=== PATIENT | male | born 1955 | race Caucasian/White ===

== ENCOUNTER → 2016-08-04 | Outpatient (CLI) | payer OTHER | LOC: CAT 12:25 | DX: K76.0 Fatty (change of) liver, not elsewhere classified (principal); R22.1 Localized swelling, mass and lump, neck ==

== ENCOUNTER → 2016-10-24 | Outpatient (CLI) | payer OTHER | LOC: CAT 09:41 | DX: K57.32 Diverticulitis of large intestine without perforation or abscess without bleeding (principal); K76.0 Fatty (change of) liver, not elsewhere classified ==

== ENCOUNTER → 2018-01-14 | Outpatient (CLI) | payer OTHER | LOC: CAT 12:07 | DX: Z13.6 Encounter for screening for cardiovascular disorders (principal); E78.00 Pure hypercholesterolemia, unspecified ==